=== PATIENT | male | born 1950 | race Caucasian/White ===

== ENCOUNTER 2017-10-30 16:33 | Observation (INO) | payer OTHER ==
[~2017-10-30] VITALS: Ht 170.2 cm; Wt 96.2 kg
[2017-10-30 16:36] VITALS: Ht 170.2 cm; Wt 96.2 kg
[2017-10-30 18:12] LABS: BASOPHIL % 0.3 % (0-2); PLATELET COUNT 248 x10^3mcL (130-400); RED CELL DISTRIBUTION WIDTH 13.2 % (11.5-14.5)
[2017-10-30 18:15] LABS: CALCIUM 8.8 mg/dL (8.5-10.1); CARBON DIOXIDE 26.4 mmol/L (21-32); CHLORIDE SERUM 104 mmol/L (98-107); GFR1 > 60 mL/min; GLUCOSE SERUM 127 mg/dL (74-106); POTASSIUM SERUM 3.7 mmol/L (3.5-5.1); SODIUM SERUM 141 mmol/L (136-145)
[2017-10-30 18:19] LABS: ALBUMIN 3.9 g/dL (3.4-5.0); ALKALINE PHOSPHATASE 123 U/L (46-116); BILIRUBIN TOTAL 0.46 mg/dL (0.20-1.00); CHOLESTEROL 159 mg/dL (<200); CHOLESTEROL/HDL RATIO 4.3; HDL CHOLESTEROL 37 mg/dL (40-60); LIPASE 299 IU/L (73-393); TOTAL PROTEIN, SERUM 7.5 g/dL (6.4-8.2); TRIGLYCERIDES 553 mg/dL (<150)
[2017-10-30 18:26] LABS: FREE T4 1.09 ng/dL (0.76-1.46); FREE THYROXINE INDEX 2.8 ug/dL (1.4-4.5); T4(THYROXINE) 7.9 ug/dL (4.7-13.3)
[2017-10-30 18:29] LABS: T3 TOTAL 0.93 ng/mL
[2017-10-30 18:38] LABS: ALT/SGPT 21 U/L (16-63); AST/SGOT 59 U/L (15-37)
[2017-10-30] MEDS ORDERED: ATORVASTATIN CA40 M1 PO (19:01)
[2017-10-30] MEDS ORDERED: FINASTERIDE5 M1 PO (19:02)
[2017-10-30] MEDS ORDERED: ASPIR 8181 MG PO (19:02)
[2017-10-30] MEDS ORDERED: LOSARTAN POTASS25 M1 PO (19:02)
[2017-10-30] MEDS ORDERED: FLO4 PO (19:02)
[2017-10-30] MEDS ORDERED: METFORMIN500 M1 PO (19:03)
[2017-10-30] MEDS ORDERED: PLAVIX75 M1 PO (19:03)
[2017-10-30] MEDS ORDERED: ATENOLOL100 MG PO (19:03)
[2017-10-30] MEDS ORDERED: NITROGLYCERIN0.4 MG SL (19:04)
[2017-10-30] MEDS ORDERED: EPZICOM1 TAB (19:04)
[2017-10-30 19:21] LABS: MAGNESIUM 2.1 mg/dL (1.8-2.4); PHOSPHOROUS 3.3 mg/dL (2.5-4.9)
[2017-10-30 19:52] LABS: microscopic required? YES; urine erythrocyte 3+ (NEGATIVE)
[2017-10-30 20:12] VITALS: BP 108/60
[2017-10-30 21:42] VITALS: BP 108/60
[2017-10-31 04:49] VITALS: BP 99/48
[2017-10-31 07:52] LABS: BASOPHIL % 0.5 % (0-2); PLATELET COUNT 196 x10^3mcL (130-400); RED CELL DISTRIBUTION WIDTH 13.3 % (11.5-14.5)
[2017-10-31 08:02] LABS: CALCIUM 8.4 mg/dL (8.5-10.1); CARBON DIOXIDE 24.2 mmol/L (21-32); CHLORIDE SERUM 108 mmol/L (98-107); CREATININE SERUM 0.9 mg/dL (0.7-1.3); GFR1 > 60 mL/min; GLUCOSE SERUM 119 mg/dL (74-106); PHOSPHOROUS 3.7 mg/dL (2.5-4.9); POTASSIUM SERUM 4.1 mmol/L (3.5-5.1); SODIUM SERUM 142 mmol/L (136-145)
[2017-10-31 09:10] VITALS: BP 101/44
[2017-10-31 12:21] VITALS: BP 101/44
[2017-10-31 13:10] VITALS: BP 115/54
== END 2017-10-31 14:10 | disposition home or self-care (01) | DRG 392 ==
LOC: ED 16:33 → DU 18:41
PROVIDERS: Family Medicine; Specialist
DX: K21.9 Gastro-esophageal reflux disease without esophagitis (principal); B96.81 Helicobacter pylori [H. pylori] as the cause of diseases classified elsewhere; N40.0 Benign prostatic hyperplasia without lower urinary tract symptoms; R31.9 Hematuria, unspecified; E11.9 Type 2 diabetes mellitus without complications; E78.5 Hyperlipidemia, unspecified; I25.2 Old myocardial infarction; Z68.32 Body mass index [BMI] 32.0-32.9, adult; Z79.84 Long term (current) use of oral hypoglycemic drugs; Z95.5 Presence of coronary angioplasty implant and graft
CPT/HCPCS: 83880; 84439; G0378; J7030; Q0092

== ENCOUNTER 2018-04-10 00:48 | Emergency (ER) | payer OTHER ==
[~2018-04-10] VITALS: Ht 170.2 cm; Wt 100.7 kg
[~2018-04-10 00:48] MED LIST: ASPIR 8181 MG PO; ATENOLOL100 MG PO; ATORVASTATIN CA40 M1 PO; EPZICOM1 TAB; FINASTERIDE5 M1 PO; FLO4 PO; LOSARTAN POTASS25 M1 PO; METFORMIN500 M1 PO; NITROGLYCERIN0.4 MG SL; PLAVIX75 M1 PO
[2018-04-10 00:51] VITALS: Ht 170.2 cm; Wt 100.7 kg
[2018-04-10 01:38] LABS: BASOPHIL % 0.6 % (0-2); PLATELET COUNT 270 x10^3mcL (130-400); RED CELL DISTRIBUTION WIDTH 13.6 % (11.5-14.5)
[2018-04-10 01:49] LABS: CALCIUM 9.6 mg/dL (8.5-10.1); CARBON DIOXIDE 23.9 mmol/L (21-32); CHLORIDE SERUM 106 mmol/L (98-107); CREATININE SERUM 1.1 mg/dL (0.7-1.3); GFR1 > 60 mL/min; GLUCOSE SERUM 119 mg/dL (74-106); POTASSIUM SERUM 4.2 mmol/L (3.5-5.1); SODIUM SERUM 141 mmol/L (136-145)
[2018-04-10 01:53] LABS: ALBUMIN 3.9 g/dL (3.4-5.0); ALKALINE PHOSPHATASE 112 U/L (46-116); ALT/SGPT 77 U/L (16-63); AST/SGOT 22 U/L (15-37); BILIRUBIN TOTAL 0.24 mg/dL (0.20-1.00); LIPASE 422 IU/L (73-393); TOTAL PROTEIN, SERUM 7.4 g/dL (6.4-8.2)
[2018-04-10 04:39] VITALS: BP 128/72
== END 2018-04-10 04:40 | disposition home or self-care (01) ==
LOC: ED 00:48
PROVIDERS: Emergency Medicine
DX: K80.80 Other cholelithiasis without obstruction (principal); I10 Essential (primary) hypertension; E11.9 Type 2 diabetes mellitus without complications
CPT/HCPCS: 36415; J1885; Q0092

== ENCOUNTER 2019-09-07 01:11 | Inpatient (IN) | payer OTHER ==
[~2019-09-07] VITALS: Ht 152.4 cm; Wt 102.6 kg
[2019-09-07 01:14] VITALS: Ht 152.4 cm; Wt 102.6 kg
[2019-09-07 02:01] LABS: CALCIUM 8.3 mg/dL (8.5-10.1); CARBON DIOXIDE 25.2 mmol/L (21-32); CHLORIDE SERUM 104 mmol/L (98-107); CREATININE SERUM 0.9 mg/dL (0.7-1.3); GFR1 > 60 mL/min; GLUCOSE SERUM 135 mg/dL (74-106); POTASSIUM SERUM 3.7 mmol/L (3.5-5.1); SODIUM SERUM 139 mmol/L (136-145)
[2019-09-07 02:04] LABS: BASOPHIL % 0.5 % (0-2); PLATELET COUNT 235 x10^3mcL (130-400); RED CELL DISTRIBUTION WIDTH 12.3 % (11.5-14.5)
[2019-09-07 02:05] LABS: ALBUMIN 3.5 g/dL (3.4-5.0); ALKALINE PHOSPHATASE 105 U/L (46-116); ALT/SGPT 55 U/L (16-63); AST/SGOT 23 U/L (15-37); BILIRUBIN TOTAL 0.35 mg/dL (0.20-1.00); TOTAL PROTEIN, SERUM 6.8 g/dL (6.4-8.2)
[2019-09-07] MEDS ORDERED: TENORMIN100 MG PO (02:40)
[2019-09-07] MEDS ORDERED: FENOFIBRATE MI134 MG PO (02:41)
[2019-09-07 03:33] VITALS: BP 146/69
[2019-09-07 05:40] VITALS: BP 124/58
[2019-09-07 07:25] LABS: BASOPHIL % 0.5 % (0-2); PLATELET COUNT 207 x10^3mcL (130-400); RED CELL DISTRIBUTION WIDTH 13.4 % (11.5-14.5)
[2019-09-07 09:00] VITALS: BP 137/67
[2019-09-07 11:14] LABS: CALCIUM 8.7 mg/dL (8.5-10.1); CARBON DIOXIDE 27.5 mmol/L (21-32); CHLORIDE SERUM 104 mmol/L (98-107); CREATININE SERUM 0.9 mg/dL (0.7-1.3); GFR1 > 60 mL/min; GLUCOSE SERUM 151 mg/dL (74-106); POTASSIUM SERUM 4.1 mmol/L (3.5-5.1); SODIUM SERUM 140 mmol/L (136-145)
[2019-09-07 12:39] VITALS: BP 118/52
[2019-09-07 15:32] LABS: CHOLESTEROL/HDL RATIO 3.4
[2019-09-07 17:22] VITALS: BP 126/68
[2019-09-07 21:30] VITALS: BP 120/56
[2019-09-08 05:32] VITALS: BP 105/55
[2019-09-08 08:44] VITALS: BP 115/61
[2019-09-08 10:36] LABS: CALCIUM 9.4 mg/dL (8.5-10.1); CARBON DIOXIDE 22.4 mmol/L (21-32); CHLORIDE SERUM 101 mmol/L (98-107); CREATININE SERUM 0.9 mg/dL (0.7-1.3); GFR1 > 60 mL/min; GLUCOSE SERUM 196 mg/dL (74-106); POTASSIUM SERUM 4.3 mmol/L (3.5-5.1); SODIUM SERUM 136 mmol/L (136-145)
[2019-09-08 11:53] VITALS: BP 123/62
[2019-09-08 12:58] VITALS: BP 123/62
[2019-09-08 16:58] VITALS: BP 110/60
== END 2019-09-08 17:45 | disposition short-term general hospital (02) | DRG 281 ==
LOC: ED 01:11 → DU 02:36 → EDBEDREQ 02:39 → DU 02:58
PROVIDERS: Emergency Medicine; Internal Medicine Cardiovascular Disease; ADMIT Internal Medicine Pulmonary Disease
DX: I21.4 Non-ST elevation (NSTEMI) myocardial infarction (principal); Z68.41 Body mass index [BMI] 40.0-44.9, adult; I25.110 Atherosclerotic heart disease of native coronary artery with unstable angina pectoris; I11.9 Hypertensive heart disease without heart failure; E11.9 Type 2 diabetes mellitus without complications; E78.5 Hyperlipidemia, unspecified; N40.0 Benign prostatic hyperplasia without lower urinary tract symptoms; E66.01 Morbid (severe) obesity due to excess calories; Z95.5 Presence of coronary angioplasty implant and graft
CPT/HCPCS: 82962; 90658; 90732; G0378; J1644; Q0092